=== PATIENT | male | born 1965 | race Caucasian/White ===

== ENCOUNTER 2018-07-08 08:27 | Emergency (ER) | payer BC ==
[~2018-07-08] VITALS: Ht 185.4 cm; Wt 89.8 kg
[~2018-07-08 08:27] MED LIST: ATORVASTATIN CA10 MG PO
--- OUTSIDE RECORDS SUMMARY | 2018-07-08 08:31 | XMS REPORT | Continuity of Care Document ---
Author Author [facility] Interface Address Unknown Phone Unavailable Problems Problem Status Onset Date Classification Date Reported Comments Source Gastroenteritis 09/02/2016 Diagnosis 09/02/2016 [facility] Acute Sinusitis Problem 09/02/2016 [facility] Acute Pharyngitis Problem 09/02/2016 [facility] Acute Upper Respiratory Infection Problem 09/02/2016 [facility] Allergic Rhinitis Problem 09/02/2016 [facility] Influenza with Respiratory Manifestation Other than Pneumonia Problem 09/02/2016 [facility] Abnormal Blood Pressure Problem 09/02/2016 [facility] Medications Medication Details Route Status Patient Instructions Ordering Provider Order Date Source atorvastatin 20 MG Oral Tablet atorvastatin 20 mg tablet TK 1 T PO QD Active [facility] levocetirizine dihydrochloride 5 MG Oral Tablet levocetirizine 5 mg tablet Take 1 tablet every day by oral route at bedtime for 30 days. Active [facility] Hyoscyamine Sulfate 0.125 MG Sublingual Tablet [Levsin] Levsin/SL 0.[address] 1 tablet every 4 hours by sublingual route as needed for 3 days. Active [facility] Lipitor Lipitor Active [facility] pantoprazole 40 MG Delayed Release Oral Tablet pantoprazole 40 mg tablet,delayed release Active [facility] Allergies, Adverse Reactions, Alerts Substance Category Reaction Severity Reaction type Status Date Reported Comments Source Immunizations Immunization Date Given Site Status Last Updated Comments Source influenza, unspecified formulation 11/20/2015 completed [facility] influenza, [id number] 11/19/2013 completed [facility] Td (adult) 02/20/2008 completed [facility] Results Order Name Results Value Reference Range Date Interpretation Comments Source Vital Signs Vital Sign Value Date Comments Source Diastolic (mm Hg) 80 09/02/2016 [facility] Height 73 09/02/2016 [facility] Systolic (mm Hg) 122 09/02/2016 [facility] Weight 190 09/02/2016 [facility] Encounters Location Location Details Encounter Type Encounter Number Reason For Visit Attending Provider ADM Date DC Date Status Source [place] - [facility] - [id number], [facility]: [address], [place] [address], Ph. [id number] Izabella Lopez 09/02/2016 [facility] Procedures Procedure Code Date Perfomer Comments Source
--- OUTSIDE RECORDS SUMMARY | 2018-07-08 08:31 | XMS REPORT ---
Author [facility] Address Unknown Phone Unavailable Care Team Providers [employer] Sales Representative Name Role Phone Quincy STRONG Unavailable Unavailable Problems This patient has no known problems. Allergies, Adverse Reactions, Alerts This patient has no known allergies or adverse reactions. Medications This patient has no known medications. Results Test Description Test Time Test Comments Text Results Atomic Results Result Comments CT BRAIN WO [place] [address] [place] [address] Patient Name: CHRIS ARCE MR #: [id number] : 1965 Age/Sex: 51/M Req #: [id number] Adm Physician: Ordered by: YANIRA STRONG MD Report #: [id number] Location: ER Room/Bed: Procedure: [id number] CT/CT BRAIN WO Exam Date: 10/08/16 Exam Time: 912 REPORT STATUS: Signed Exam: Head CT without contrast History: Headache, hypertension Comparison studies: None Technique: Axial images were obtained from the skull base to the vertex. Coronal and sagittal images reconstructed from the axial data. Intravenous contrast: None Findings: Scalp: No abnormalities. Bones: No fractures, blastic or lytic lesions. Brain sulci: Appropriate for age. Ventricles: Normal in size and configuration. No hydrocephalus. Extra- axial spaces: No masses, no fluid collection. Parenchyma: No abnormal densities. No masses, acute hemorrhage, or acute or chronic cortical vascular insults. Sellar/suprasellar region: No abnormalities. Craniocervical junction: Patent foramen magnum. No Chiari one malformation. IMPRESSION: No intracranial abnormalities. Signed by: Dr. Chris Woodard M.D. on 10/08/2016 9:36 AM Dictated By: CHRIS WOODARD MD 5 Transcribed By: SHANELL on 10/08/16935 COPY TO: YANIRA STRONG MD
--- OUTSIDE RECORDS SUMMARY | 2018-07-08 08:31 | XMS REPORT | Encounter Summary ---
Author Organization Unknown Address [address] [place] [address] Phone [phone] Reason for Visit Medical Complaint Instructions 1. Gastroenteritis gastroenteritis: care instructions Levsin/SL 0.125 mg sublingual tablet Discussion Note Pt is in NAD; Verbalizes understanding of all instructions with no questions at this time. Plan of Care Patient Instructions Stay hydrated, eat a liquid diet for the first four hours. Stay away from fried and spicy foods until symptoms resolve. If you do experience improvement in your symptoms within the next four hours, advance yourself to a carbohydrate-rich diet such as white rice, white bread, and crackers. Within the next four hours thereafter, you can advance to lean meats such as chicken, fish, and turkey. Four hours thereafter if symptoms do improve, then advance to a regular diet. Take over the counter imodium for diarrhea as per package insert. Take Levsin for cramping as directed. Follow up with your PCP within 2-3 should symptoms worsen as discussed. In case of an emergency call 911 or go to the nearest ER. Reminders Provider Appointments None recorded. Lab None recorded. Referral None recorded. Procedures None recorded. Surgeries None recorded. Imaging None recorded. Medications Name Start Date atorvastatin 20 mg tablet TK 1 T PO QD levocetirizine 5 mg tablet Take 1 tablet every day by oral route at bedtime for 30 days. Levsin/SL 0.[address] 1 tablet every 4 hours by sublingual route as needed for 3 days. Lipitor pantoprazole 40 mg tablet,delayed release Medications Administered None recorded. Vitals Height Weight BMI Blood Pressure 6 ft 1 in 190 lbs 25.1 kg/m2 122/80 mm[Hg] Lab Results None recorded. Allergies Code Code System Name Reaction Severity Onset NKDA Problems Name Status Onset Date Source Acute Sinusitis Active Encounter Acute Pharyngitis Active Encounter Acute Upper Respiratory Infection Active Encounter Allergic Rhinitis Active Encounter Influenza with Respiratory Manifestation Other than Pneumonia Active Encounter Abnormal Blood Pressure Active Encounter Procedures None recorded. Vaccine List Vaccine Type influenza, [id number] 11/19/2013 influenza, unspecified formulation 11/20/2015 Td (adult) 02/20/2008 Social History Smoking Status Never Smoker Past Encounters 09/02/2016 Gastroenteritis Izabella Lopez, [facility]: [address] [facility], [place] [address], Ph. History of Present Illness Babfml-Hrqmduzo-Nasgbcee / Abdominal Pain Reported By: Patient HPI: Quality: watery, frequent. Severity: moderate. Duration: present for 1-2 weeks. Onset/Timing: worse with meals, gradual onset, 4-10 times a day. Context: no one else with similar symptoms, no recent camping, no recent picnic, no possible food sources, no recent travel, has had a colonoscopy. Alleviating factors: Imodium, OTC medication, better with fasting. Aggravating factors: eating. Associated Symptoms: no abdominal pain, no excess gas, no fever/chills, no rash, no joint pain, no weight loss, no nausea, no vomiting, no heartburn, no blood in stool, no mucus in stool, no black or tarry stools, no weakness, no nutrient deficiency, no headache, no feeling of fullness/mass in throat, no muscle aches, no bitter taste in the mouth, no difficulty swallowing (dysphagia), cramping; watery diarrhea Note:
Review of Systems:ROS as noted in the HPI Review of Systems Basic Reported By: Patient Physical Exam Adult Basic, Adult Female Complete, Adult Male Complete Reported By: Patient Constitutional: General Appearance: healthy-appearing, well-nourished, well-developed. Level of Distress: NAD. Ambulation: ambulating normally Psychiatric: Mental Status: active and alert. Orientation: to time, to place, to person Eyes: Lids and Conjunctivae: non-injected, no pallor Dlr-Fsjq-Bxknk-Throat: Lips, Teeth, and Gums: no mouth or lip ulcers, no bleeding gums, normal dentition. Oropharynx: moist mucous membranes, no erythema, no exudates, tonsils not enlarged Neck: Neck: supple. Lymph Nodes: no cervical LAD Lungs: Respiratory effort: no dyspnea, no tachypnea, no use of accessory muscles, no intercostal retractions. Auscultation: breath sounds normal Cardiovascular: Heart Auscultation: RRR, no murmurs Abdomen: Bowel Sounds: high-pitched. Inspection and Palpation: soft, non-distended, no tenderness, no guarding, no rebound tenderness, no masses, no CVA tenderness. Liver: non-tender, no hepatomegaly. Spleen: non-tender, no splenomegaly. Hernia: none palpable
--- NOTE | 2018-07-08 09:03 | Diagnostic Imaging Report ---
EXAMINATION: CXR 2 VIEW - HOPD INDICATION: Right sided rib pain. COMPARISON: None FINDINGS: TUBES and LINES: None. LUNGS: Lungs are well inflated. There is no evidence of pneumonia or pulmonary edema. A 5 mm nodule opacity projects over the right midlung. PLEURA: No pleural effusion or pneumothorax. HEART AND MEDIASTINUM: The cardiomediastinal silhouette is unremarkable. BONES AND SOFT TISSUES: No acute osseous abnormality. No evidence of acute displaced rib fracture. There is a fracture deformity of the left anterolateral sixth rib. UPPER ABDOMEN: No free air under the diaphragm. IMPRESSION: No acute radiographic abnormality. A 5 mm nodule opacity projecting over the right midlung may represent overlying vessels or pulmonary nodule. Suggest follow-up chest CT, which can be performed non-urgently, for further evaluation. Signed by: Dr. Tony Pritchard MD on 07/08/2018 8:59 AM
--- NOTE | 2018-07-08 10:08 | Diagnostic Imaging Report ---
EXAM: CT Chest without contrast INDICATION: Possible lung nodule on chest radiograph COMPARISON: Chest radiograph 07/08/2018. TECHNIQUE: Chest was scanned utilizing a multidetector helical scanner from the lung apex through the level of the adrenal glands without administration of IV contrast. Coronal and sagittal reformations were obtained. Routine protocol was performed. RADIATION DOSE: Total DLP: 642.4 mGy*cm Dose modulation, iterative reconstruction, and/or weight based adjustment of the mA/kV was utilized to reduce the radiation dose to as low as reasonably achievable. COMPLICATIONS: None FINDINGS: LINES/ TUBES: None. LUNGS AND AIRWAYS: The central airways are patent. Mild biapical pleural-parenchymal opacity, suggestive of prior granulomatous disease. There is a 5 mm solid nodule in the right upper lobe medially on series 3, image 64 and a 4 mm nodule in the right middle lobe on image 71. Scattered other bilateral 2-3 mm bilateral solid nodules. Patchy dependent atelectasis. Mild lower lobe subpleural reticular opacities may represent early fibrotic changes. PLEURA: The pleural spaces are clear. HEART AND MEDIASTINUM: The thyroid gland is normal. No mediastinal, hilar or axillary lymphadenopathy. No cardiomegaly or pericardial effusion. Scattered coronary and aortic catheters chronic calcifications. UPPER ABDOMEN: Limited noncontrast views of the upper abdomen. Small hiatal hernia. BONES: No acute osseous abnormality. No suspicious lytic or blastic lesions. SOFT TISSUES: Unremarkable. IMPRESSION: Small bilateral pulmonary nodules, measuring up to 5 mm in the right upper lobe. If there is a low risk for malignancy, no further followup is required. If there is a high risk for malignancy such as a smoking history, follow-up chest CT may be considered in 12 months. Signed by: Dr. Tony Pritchard MD on 07/08/2018 10:05 AM
[2018-07-08 10:13] VITALS: BP 138/88
== END 2018-07-08 10:19 | disposition home or self-care (01) ==
LOC: FSED 08:27
DX: R07.89 Other chest pain (principal); M94.0 Chondrocostal junction syndrome [Tietze]; E78.00 Pure hypercholesterolemia, unspecified
CPT/HCPCS: 71046; 71250; 80053; 85025; 85379; 99284